=== PATIENT | female | born 1955 | race Caucasian/White ===

== ENCOUNTER → 2024-02-24 13:51 | Outpatient (REF) | payer MEDICARE, OTHER, SELFPAY | LOC: WDC 13:51 | PROVIDERS: ATTENDING PHYSICIAN Advanced Practice Midwife; FAMILY PHYSICIAN Physician Assistant Medical | DX: Z78.0 Asymptomatic menopausal state (principal); Z12.31 Encounter for screening mammogram for malignant neoplasm of breast | CPT/HCPCS: 77063; 77067; 77080 ==

== ENCOUNTER → 2025-02-27 13:38 | Outpatient (REF) | payer MEDICARE, OTHER, SELFPAY | LOC: WDC 13:38 | PROVIDERS: ATTENDING PHYSICIAN Advanced Practice Midwife; FAMILY PHYSICIAN Physician Assistant Medical | DX: Z12.31 Encounter for screening mammogram for malignant neoplasm of breast (principal) | CPT/HCPCS: 77063; 77067 ==

== ENCOUNTER → 2025-06-15 14:36 | Outpatient (REF) | payer MEDICARE, OTHER, SELFPAY | LOC: WDC 14:36 | PROVIDERS: ATTENDING PHYSICIAN Advanced Practice Midwife; FAMILY PHYSICIAN Physician Assistant Medical | DX: R92.2 Inconclusive mammogram (principal) | CPT/HCPCS: 76641 ==